=== PATIENT | male | born 1975 ===

== ENCOUNTER 2025-02-04 22:06 | Emergency (ER) | payer OTHER ==
[~2025-02-04] VITALS: Ht 175.3 cm; Wt 74.8 kg
[2025-02-04] MEDS ORDERED: CIPR500 PO (23:27)
== END 2025-02-04 23:46 | disposition home or self-care (01) ==
LOC: ER 22:06
DX: S91.331A Puncture wound without foreign body, right foot, initial encounter (principal); W45.0XXA Nail entering through skin, initial encounter
CPT/HCPCS: 73630; 90471; 90715; 99283-25; A9270